=== PATIENT | female | born 1990 | race African-American/Black ===

== ENCOUNTER 2022-06-21 17:47 | Emergency (ER) | payer OTHER ==
[2022-06-21 18:41] LABS: BASOPHILS % (AUTO) 0.3 %; EOSINOPHILS # (AUTO) 0.1 10^3/uL (0.0-0.7); EOSINOPHILS % (AUTO) 1.8 %; HCT - HEMATOCRIT 41.9 % (37.0-47.0); HGB - HEMOGLOBIN 13.3 g/dL (12.0-16.0); LYMPHOCYTES % (AUTO) 32.8 %; MEAN CORPUSCULAR HEMOGLOBIN 26.4 pg (27.0-31.0); MEAN CORPUSCULAR HGB CONC 31.7 g/dL (32.0-36.0); MEAN CORPUSCULAR VOLUME 83.1 fL (81.0-99.0); MEAN PLATELET VOLUME 10.4 fL (7.9-10.8); MONOCYTES # (AUTO) 0.4 10^3/uL (0.0-1.0); MONOCYTES % (AUTO) 7.4 %; NEUTROPHILS # (AUTO) 3.4 10^3/uL (1.5-6.6); NEUTROPHILS % (AUTO) 57.5 %; PLT - PLATELET COUNT 239 10^3/uL (130-450); RED BLOOD COUNT 5.04 10^6/uL (4.20-5.40); RED CELL DISTRIBUTION WIDTH 14.3 % (12.0-15.0)
[2022-06-21 18:53] LABS: ALBUMIN 4.2 g/dL (3.2-5.5); BILIRUBIN,TOTAL 0.2 mg/dL (0.2-1.0); CALCIUM 9.7 mg/dL (8.5-10.3); CREATININE 0.7 mg/dL (0.4-1.0); POTASSIUM 3.9 mmol/L (3.5-5.0); TOTAL PROTEIN 8.3 g/dL (6.7-8.2)
[2022-06-21] MEDS ORDERED: oxyCODONE 5 MG TABLET PO STA ×2 (19:52→22:12)
--- NOTE | 2022-06-21 20:00 | ED Physician Documentation ---
PD HPI ABD PAIN - Stated complaint Stated Complaint: ABD PAIN - Chief complaint Chief Complaint: Abd Pain - History obtained from History obtained from: Patient - History of Present Illness Timing - onset: Today Timing - details: Gradual onset Pain level max: 8 Pain level now: 6 Quality: Aching, Pain Associated symptoms: Diarrhea, Hematochezia. No: Fever, Nausea, Vomiting, Hematemesis, Constipation, Melena, Dysuria, Hematuria, Chest pain - Additional information Additional information: Patient is a 31-year-old female who presents to the emergency department with abdominal pain, suprapubic x2 weeks. The pain has been constant. Described as pressure, cramping and achy. LMP was about 2 weeks ago. Has not had similar symptoms previously. She noted bright red blood in her stool x1. Nothing makes the pain better. Worse with palpation. Does have a history of an appendectomy in the past. She is from [place]. She speaks Bruneian. She does not take any medications at home. Review of Systems Ten Systems: 10 systems reviewed and negative Constitutional: denies: Fever, Chills Cardiac: denies: Chest pain / pressure GI: denies: Vomiting : denies: Dysuria, Frequency, Hesitancy, Now EGA Musculoskeletal: denies: Neck pain, Back pain PD PAST MEDICAL HISTORY - Past Medical History Past Medical History: No - Past Surgical History Past Surgical History: Yes General: Appendectomy - Present Medications Home Medications: Ambulatory Orders Medication Instructions Recorded Confirmed Oxycodone HCl/Acetaminophen 1 - 2 each PO Q6H PRN #14 tablet 06/21/22 [Percocet 5-325 mg Tablet] - Allergies Allergies/Adverse Reactions: Allergies Allergy/AdvReac Type Severity Reaction Status Date / Time No Known Drug Allergies Allergy Verified 06/21/22 18:03 - Living Situation Living Situation: reports: With family Living Arrangement: reports: At home - Social History Does the pt smoke?: No Does the pt have substance abuse?: No PD ED PE NORMAL - Vitals Vital signs reviewed: Yes - General General: Alert and oriented X 3, No acute distress, Well developed/nourished - HEENT HEENT: Moist mucous membranes - Neck Neck: Supple, no meningeal sign - Cardiac Cardiac: RRR, Strong equal pulses - Respiratory Respiratory: No respiratory distress, Clear bilaterally - Abdomen Abdomen: Soft, Non distended, Other (Mild tenderness to palpation suprapubic. No peritoneal signs. Otherwise normal examination) - Back Back: No CVA TTP - Derm Derm: Warm and dry, No rash - Extremities Extremities: No edema - Neuro Neuro: Alert and oriented X 3 - Psych Psych: Normal mood, Normal affect Results - Vitals Vitals: Vital Signs - 24 hr 06/21/22 06/21/22 06/21/22 17:55 20:03 22:21 Temperature 36.5 C 36.6 C Heart Rate 80 80 79 Respiratory 16 16 16 Rate Blood Pressure 129/82 H 122/76 123/76 O2 Saturation 100 98 98 Oxygen O2 Source Room air - Labs Labs: Laboratory Tests 06/21/22 06/21/22 06/21/22 18:34 18:34 20:56 WBC 6.0 RBC 5.04 Hgb 13.3 Hct 41.9 MCV 83.1 MCH 26.4 L MCHC 31.7 L RDW 14.3 Plt Count 239 MPV 10.4 Neut # (Auto) 3.4 Lymph # (Auto) 2.0 [place] # (Auto) 0.4 Eos # (Auto) 0.1 Baso # (Auto) 0.0 Absolute Nucleated RBC 0.00 Nucleated RBC % 0.0 Sodium 140 Potassium 3.9 Chloride 103 Carbon Dioxide 27 Anion Gap 10.0 BUN 14 Creatinine 0.7 Estimated GFR (MDRD) 118 Glucose 76 Calcium 9.7 Total Bilirubin 0.2 AST 20 ALT 13 Alkaline Phosphatase 59 Total Protein 8.3 H Albumin 4.2 Globulin 4.1 Albumin/Globulin Ratio 1.0 Lipase 45 Urine Color Urine Clarity Urine pH Ur Specific [place] Urine Protein Urine Glucose (UA) Urine Ketones Urine Occult Blood Urine Nitrite Urine Bilirubin Urine Urobilinogen Ur Leukocyte Esterase Ur Microscopic Review Urine Culture Comments Urine HCG, Qual NEGATIVE 06/21/22 20:56 WBC RBC Hgb Hct MCV MCH MCHC RDW Plt Count MPV Neut # (Auto) Lymph # (Auto) [place] # (Auto) Eos # (Auto) Baso # (Auto) Absolute Nucleated RBC Nucleated RBC % Sodium Potassium Chloride Carbon Dioxide Anion Gap BUN Creatinine Estimated GFR (MDRD) Glucose Calcium Total Bilirubin AST ALT Alkaline Phosphatase Total Protein Albumin Globulin Albumin/Globulin Ratio Lipase Urine Color YELLOW Urine Clarity CLEAR Urine pH 6.5 Ur Specific [place] 1.025 Urine Protein NEGATIVE Urine Glucose (UA) NEGATIVE Urine Ketones NEGATIVE Urine Occult Blood NEGATIVE Urine Nitrite NEGATIVE Urine Bilirubin NEGATIVE Urine Urobilinogen 0.2 (NORMAL) Ur Leukocyte Esterase NEGATIVE Ur Microscopic Review NOT INDICATED Urine Culture Comments NOT INDICATED Urine HCG, Qual - Rads (name of study) pelvic US Radiology: Final report received, EMP read contemporaneously, See rad report abd/pelvis CT Radiology: Final report received, EMP read contemporaneously, See rad report PD MEDICAL DECISION MAKING - ED course Complexity details: reviewed results, re-evaluated patient, considered differential, d/w patient, d/w family ED course: 31-year-old female presents to the emergency department with abdominal pain. The CT scan was performed without IV contrast as there is a national shortage of IV contrast. The remaining doses of IV contrast are reserved for specific indications and this patient does not meet criteria at this time. The patient's appears to have a left-sided hemorrhagic ovarian cyst. No significant lab abnormalities. Pain well controlled. We will place her on pain medication for home and have her follow-up with her doctor for further care. Patient is well- appearing, nontoxic. Patient counseled regarding signs and symptoms for which I believe and urgent re-evaluation would be necessary. Patient with good understanding of and agreement to plan and is comfortable going home at this time This document was made in part using voice recognition software. While efforts are made to proofread this document, sound alike and grammatical errors may occur. IMPRESSION: 1. No definite acute intra-abdominal abnormality. Specifically, no pericecal inflammatory changes to suggest appendicitis. IMPRESSION: 1. No evidence of ovarian torsion. 2. Thick-walled left ovarian cyst likely represents a physiologic cyst such as a corpus luteal cyst. Departure - Departure Disposition: 01 Home, Self Care Clinical Impression: Hemorrhagic ovarian cyst Condition: Good Instructions: ED Cyst Ovarian Follow-Up: your,doctor in 1 week [Other] Prescriptions: Oxycodone HCl/Acetaminophen [Percocet 5-325 mg Tablet] 1 - 2 each PO Q6H PRN #14 tablet PRN Reason: pain Print Language: Bruneian Comments: You appear to have a hemorrhagic ovarian cyst. This should resolve on its own, but can cause pain for several more days. Your prescription for pain medication was sent to the [facility] pharmacy. Please return if you worsen. The remainder of your testing does not show any acute abnormalities. I am prescribing a short course of narcotic pain medication for you. These are potentially dangerous and addictive medications that should be used carefully. These medications may constipate you. Take an gyki-pno-mbgsytx stool softener (docusate) twice daily with plenty of water while taking these medications. If you go 24 hours without a bowel movement, take noeg-gzg-nvfsyut miralax, per package instructions. Do not drink or drive while taking these medications. If you received narcotic or sedating medications while in the emergency department, do not drive for 24 hours. Store this medication in a safe, secure place and out of reach of children. It is a violation of federal law to give or sell this medication to another person or to use in a manner other than prescribed. The ED will not refill narcotic prescriptions, including prescriptions lost or stolen. To dispose of unwanted medications: 1. [facility] at [address] in [place] has a medication drop box. They accept prescription medications (in pill form) Sunday through Sunday 9:00 a.m. to 5:00 p.m. 2. The [facility] accepts prescription medications (in pill form only) for disposal year round. Call for more information. 3. Contact the [facility] for the next [facility] sponsored prescription drug collection event. , [phone], or [phone]; Discharge Date/Time: 06/21/22 22:21
[2022-06-21 21:01] LABS: BILIRUBIN,URINE NEGATIVE (NEGATIVE); GLUCOSE, URINE (UA) NEGATIVE (NEGATIVE); KETONES,URINE (UA) NEGATIVE (NEGATIVE); LEUKOCYTE ESTERASE, URINE NEGATIVE (NEGATIVE); NITRITE,URINE NEGATIVE (NEGATIVE); OCCULT BLOOD,URINE NEGATIVE (NEGATIVE); PH,URINE 6.5 PH (5.0-7.5); PROTEIN,URINE NEGATIVE (NEGATIVE); UROBILINOGEN,URINE 0.2 (NORMAL) E.U./dL (NORMAL)
[2022-06-21 21:03] LABS: CLARITY,URINE CLEAR (CLEAR); HCG UR QUAL NEGATIVE
--- NOTE | 2022-06-21 21:45 | Ultrasound Report ---
PROCEDURE: Pelvic w/Transvag+Doppler Comp INDICATIONS: pelvic pain x 2 weeks TECHNIQUE: Real-time scanning was performed of the pelvic organs, with image documentation. Additional endovagi nal scanning was necessary due to incomplete visualization of the adnexal and endometrial structures by transabdominal scanning. Doppler interrogation was performed of the ovaries bilaterally. COMPARISON: None. FINDINGS: No pathologic free abdominal or pelvic fluid. Uterus: Uterus is anteverted and measures 10.3 x 5.6 x 6.7 cm. The endometrium measures up to 1.1 cm . There are small nabothian cysts. Ovaries: The right ovary measures 3.5 x 2.4 x 1.8 cm with E to a volume of 8.1 mL. The left ovary me asures 3.8 x 2 x 3 cm with a volume of 12.1 mL. There is patent arterial flow demonstrated in the ova wolfgang. Within the left ovary, there is a thick-walled cyst measuring approximately 2.3 x 1.9 x 2 cm. IMPRESSION: 1. No evidence of ovarian torsion. 2. Thick-walled left ovarian cyst likely represents a physiologic cyst such as a corpus luteal cyst. Reviewed by: Tommy Bey MD on 06/21/2022 9:44 PM PDT Approved by: Tommy Bey MD on 06/21/2022 9:44 PM PDT Station ID: [id number]
--- NOTE | 2022-06-21 21:50 | CT Report ---
PROCEDURE: Abdomen/Pelvis WO INDICATIONS: lower abd pain TECHNIQUE: Noncontrast 5 mm thick sections acquired from the diaphragms to the symphysis. 5 mm coronal and sagi ttal reformats were then performed. For radiation dose reduction, the following was used: automated exposure control, adjustment of mA and/or kV according to patient size. COMPARISON: Concurrent pelvic ultrasound 06/21/2022. FINDINGS: Image quality: Excellent. Lung bases:There is mild dependent atelectasis. Heart: Heart is normal in size. ABDOMEN: Liver:Noncontrast evaluation of the liver demonstrates no discrete hepatic mass. Gallbladder: Within normal limits without calcified gallstones. Biliary ducts: No biliary ductal dilatation. Pancreas: Unremarkable. Spleen: Normal in size. Adrenal Glands: No adrenal nodules. Kidneys and Ureters: No hydronephrosis. Stomach and Bowel: Stomach, small bowel loops, and colon are normal in caliber and wall thickness. T he appendix is not discretely well visualized but there are no pericecal inflammatory changes to sugg est appendicitis. Peritoneum: No abnormal intraperitoneal fluid. No free air. Ventral Wall: No hernia. Abdominal Nodes: No retroperitoneal or mesenteric adenopathy by size criteria. Vessels: Aorta and inferior vena cava are normal in size. PELVIS: Pelvic Organs: Unremarkable. Bladder: Unremarkable. Pelvic Nodes: No enlarged lymph nodes. Miscellaneous: No inguinal hernias are seen. Bones: Visualized osseous structures demonstrate no suspicious focal lesions. IMPRESSION: 1. No definite acute intra-abdominal abnormality. Specifically, no pericecal inflammatory changes to suggest appendicitis. Reviewed by: Tommy Bey MD on 06/21/2022 9:48 PM PDT Approved by: Tommy Bey MD on 06/21/2022 9:48 PM PDT Station ID: [id number]
[2022-06-21 22:22] VITALS: BP 123/76
== END 2022-06-21 22:21 | disposition home or self-care (01) ==
LOC: ED 17:47
DX: N83.202 Unspecified ovarian cyst, left side (principal)
CPT/HCPCS: 36415; 74176; 76830; 76856; 80053; 81003; 81025; 83690; 85025; 93975; 99282; 99284; A9270; 81001; 87086

== ENCOUNTER 2022-08-30 16:01 | Emergency (ER) | payer OTHER ==
[2022-08-30 16:36] LABS: BASOPHILS % (AUTO) 0.2 %; EOSINOPHILS % (AUTO) 0.4 %; HCT - HEMATOCRIT 40.7 % (37.0-47.0); HGB - HEMOGLOBIN 12.6 g/dL (12.0-16.0); LYMPHOCYTES # (AUTO) 1.5 10^3/uL (1.5-3.5); LYMPHOCYTES % (AUTO) 32.8 %; MEAN CORPUSCULAR HEMOGLOBIN 25.7 pg (27.0-31.0); MEAN CORPUSCULAR VOLUME 83.1 fL (81.0-99.0); MEAN PLATELET VOLUME 9.6 fL (7.9-10.8); MONOCYTES # (AUTO) 0.4 10^3/uL (0.0-1.0); MONOCYTES % (AUTO) 7.5 %; NEUTROPHILS # (AUTO) 2.8 10^3/uL (1.5-6.6); NEUTROPHILS % (AUTO) 58.9 %; PLT - PLATELET COUNT 237 10^3/uL (130-450); RED CELL DISTRIBUTION WIDTH 14.1 % (12.0-15.0); WHITE BLOOD COUNT 4.7 x10^3/uL (4.8-10.8)
[2022-08-30 16:49] LABS: ALBUMIN 4.4 g/dL (3.2-5.5); ALBUMIN/GLOBULIN RATIO 1.1 (1.0-2.2); BILIRUBIN,TOTAL 0.9 mg/dL (0.2-1.0); CALCIUM 9.2 mg/dL (8.5-10.3); CREATININE 0.6 mg/dL (0.4-1.0); POTASSIUM 3.4 mmol/L (3.5-5.0); TOTAL PROTEIN 8.4 g/dL (6.7-8.2)
[2022-08-30 17:24] LABS: BILIRUBIN,URINE NEGATIVE (NEGATIVE); GLUCOSE, URINE (UA) NEGATIVE (NEGATIVE); KETONES,URINE (UA) 40 mg/dL (NEGATIVE); LEUKOCYTE ESTERASE, URINE NEGATIVE (NEGATIVE); NITRITE,URINE NEGATIVE (NEGATIVE); OCCULT BLOOD,URINE TRACE-INTA (NEGATIVE); PROTEIN,URINE NEGATIVE (NEGATIVE); UROBILINOGEN,URINE 1 (NORMAL) E.U./dL (NORMAL)
[2022-08-30 17:28] LABS: CLARITY,URINE CLEAR (CLEAR); HCG UR QUAL POSITIVE
--- NOTE | 2022-08-30 17:35 | ED Physician Documentation ---
History of Present Illness - Stated complaint Stated Complaint: ABD PX - Chief complaint Chief Complaint: Abd Pain - Additonal information Additional information: 32-year-old female presents emergency department for evaluation of lower pelvic pain. Symptoms began about 2 weeks ago. She is uncertain if she is but believes she could be. LMP 07/25/2022. She denies fevers. No nausea or vomiting. She has a past surgical history that includes appendectomy only. Was seen in this emergency department for some generalized abdominal pain about 2 months ago with a negative work-up. She reports that the symptoms today are different. She has taken 1 dose of ibuprofen without relief. She reports to this provider that if she is it is not a desired and she would wish for an . History was difficult to obtain it needed to be done with a [employer] hourly sign language interpreter Review of Systems Constitutional: denies: Fever, Chills Nose: reports: Reviewed and negative Throat: reports: Reviewed and negative Cardiac: reports: Reviewed and negative Respiratory: reports: Reviewed and negative GI: reports: Abdominal Pain. denies: Nausea, Vomiting : denies: Dysuria, Frequency Skin: reports: Reviewed and negative Musculoskeletal: reports: Reviewed and negative Neurologic: reports: Reviewed and negative PD PAST MEDICAL HISTORY - Past Surgical History Past Surgical History: Yes General: Appendectomy - Present Medications Home Medications: Ambulatory Orders Medication Instructions Recorded Confirmed Oxycodone HCl/Acetaminophen 1 - 2 each PO Q6H PRN #14 tablet 06/21/22 [Percocet 5-325 mg Tablet] - Allergies Allergies/Adverse Reactions: Allergies Allergy/AdvReac Type Severity Reaction Status Date / Time No Known Drug Allergies Allergy Verified 08/30/22 16:17 - Social History Does the pt smoke?: No Smoking Status: Never smoker Does the pt drink ETOH?: No Does the pt have substance abuse?: No - Immunizations Immunizations are current?: Yes - POLST Patient has POLST: No PD ED PE NORMAL - General General: Alert and oriented X 3, No acute distress, Well developed/nourished - HEENT HEENT: Atraumatic - Neck Neck: Supple, no meningeal sign, No adenopathy - Cardiac Cardiac: RRR, No murmur - Respiratory Respiratory: No respiratory distress, Clear bilaterally - Abdomen Abdomen: Normal bowel sounds, Soft. No: Non tender (Mild nonfocal lower pelvic tenderness.) - Derm Derm: Normal color, Warm and dry - Extremities Extremities: No deformity, No tenderness to palpate, Normal ROM s pain - Neuro Neuro: Alert and oriented X 3, senior policy associate 2-12 intact Eye Opening: Spontaneous Motor: Obeys Commands Verbal: Oriented GCS Score: 15 Results - Vitals Vitals: Vital Signs - 24 hr 08/30/22 08/30/22 16:11 18:57 Temperature 36.7 C Heart Rate 94 69 Respiratory 14 18 Rate Blood Pressure 137/92 H 130/90 H O2 Saturation 100 100 Oxygen O2 Source Room air - Labs Labs: Laboratory Tests 08/30/22 08/30/22 08/30/22 16:31 16:31 16:31 WBC 4.7 L RBC 4.90 Hgb 12.6 Hct 40.7 MCV 83.1 MCH 25.7 L MCHC 31.0 L RDW 14.1 Plt Count 237 MPV 9.6 Neut # (Auto) 2.8 Lymph # (Auto) 1.5 [place] # (Auto) 0.4 Eos # (Auto) 0.0 Baso # (Auto) 0.0 Absolute Nucleated RBC 0.00 Nucleated RBC % 0.0 Sodium 136 Potassium 3.4 L Chloride 103 Carbon Dioxide 23 Anion Gap 10.0 BUN 6 Creatinine 0.6 Estimated GFR (MDRD) 140 Glucose 80 Calcium 9.2 Total Bilirubin 0.9 AST 17 ALT 12 Alkaline Phosphatase 53 Total Protein 8.4 H Albumin 4.4 Globulin 4.0 Albumin/Globulin Ratio 1.1 Lipase 32 HCG, Quant 9048.00 Urine Color Urine Clarity Urine pH Ur Specific [place] Urine Protein Urine Glucose (UA) Urine Ketones Urine Occult Blood Urine Nitrite Urine Bilirubin Urine Urobilinogen Ur Leukocyte Esterase Ur Microscopic Review Urine Culture Comments Urine HCG, Qual Blood Type 08/30/22 08/30/22 08/30/22 17:02 17:02 17:49 WBC RBC Hgb Hct MCV MCH MCHC RDW Plt Count MPV Neut # (Auto) Lymph # (Auto) [place] # (Auto) Eos # (Auto) Baso # (Auto) Absolute Nucleated RBC Nucleated RBC % Sodium Potassium Chloride Carbon Dioxide Anion Gap BUN Creatinine Estimated GFR (MDRD) Glucose Calcium Total Bilirubin AST ALT Alkaline Phosphatase Total Protein Albumin Globulin Albumin/Globulin Ratio Lipase HCG, Quant Urine Color YELLOW Urine Clarity CLEAR Urine pH 6.0 Ur Specific [place] 1.025 Urine Protein NEGATIVE Urine Glucose (UA) NEGATIVE Urine Ketones 40 H Urine Occult Blood TRACE-INTA Urine Nitrite NEGATIVE Urine Bilirubin NEGATIVE Urine Urobilinogen 1 (NORMAL) Ur Leukocyte Esterase NEGATIVE Ur Microscopic Review NOT INDICATED Urine Culture Comments NOT INDICATED Urine HCG, Qual POSITIVE Blood Type O POSITIVE - Rads (name of study) pelvic US Radiology: Other PD MEDICAL DECISION MAKING - ED course Complexity details: reviewed results, re-evaluated patient, considered differential, d/w patient ED course: 32-year-old female presents emergency department for evaluation of 2 weeks of lower pelvic pain. She was uncertain if she you could be . Her LMP was 07/25/2022. This is not a desired and indicates to me that she would like an if we could accommodate. [facility]. However given the lower abdominal pain we did do an ultrasound to rule out an ectopic. Per neurology technologist positive IUP with a gestational sac. Questionable pole and heart rate small subchorionic hemorrhage. Right corpus luteal cyst ultrasound does show an IUP with a gestational sac. Questionable early pole. Her quant is just over 9000 and given last menstrual period it may be too early to see heart rate. There is some associated subchorionic hemorrhage and a small right corpus luteal cyst. Utilizing a [employer] product builder in a private room I did discuss the ultrasound findings with the patient. She indicates to me that she would like to have an and I notified her that the services were not available through the hospital but she could contact [facility] in [place] or [place]. She understood this and will be discharged home in stable condition Departure - Departure Disposition: 01 Home, Self Care Clinical Impression: and not yet delivered in first trimester Condition: Stable Record reviewed to determine appropriate education?: Yes Comments: You came to the emergency department today with about 2 weeks of lower pelvic discomfort and uncertain if you are . Your last menstrual period was July 25. Today the ultrasound does show that you are at likely around 5 to 6 weeks. You have told us that this is not a desired . If you wish to have an [facility] can contact [facility]. [facility] [address] [address]
--- NOTE | 2022-08-30 19:25 | Ultrasound Report ---
PROCEDURE: OB First Trimester w/TV INDICATIONS: low perlvic pain; OUTSIDE/PRIOR DATING DATA: Last menstrual period (LMP): 07/25/2022. LMP-based estimated date of delivery (EVELIO): 05/01/2023. First dating scan (date and location): 08/30/2022. Estimated date of delivery (EVELIO) from first dating scan: 04/27/2023. TECHNIQUE: Real-time scanning was performed of the fetus and maternal pelvic organs, with image documentation. Endovaginal scanning was also performed to better visualize the fetus and maternal ovaries. COMPARISON: None FINDINGS: Small intrauterine consistent with a gestational sac containing a yolk sac and pole m easuring 2 mm in length, corresponding with a 5 week 5 day gestation. Cardiac motion was observed. Subchorionic bleed measures 1 x 0.5 x 1.3 cm Measurement variability in dating: +/- 4 weeks by LMP, +/- 7 days by mean sac diameter (use before 6 weeks gestation if crown-rump length not able to be measured), +/- 5 days by crown-rump length (6-12 weeks gestation). Maternal organs: Ovaries right-sided corpus luteum cyst measures 2.1 x 2.5 cm. No adnexal mass.. IMPRESSION: Single intrauterine corresponds with a 5 week 5 day gestation. No cardiac motion observed. Differential possibilities include normal early and demise. Subchorionic/implantation bleed measures 1.3 cm Reviewed by: Delfin Mart MD on 08/30/2022 6:23 PM JUAN Approved by: Delfin Mart MD on 08/30/2022 6:23 PM JUAN Station ID: [id number]
[2022-08-30 19:45] VITALS: BP 129/79
== END 2022-08-30 19:43 | disposition home or self-care (01) ==
LOC: ED 16:01
DX: O20.8 Other hemorrhage in early pregnancy (principal); Z3A.01 Less than 8 weeks gestation of pregnancy
CPT/HCPCS: 36415; 80053; 81001; 81003; 81025; 83690; 84702; 85025; 86900; 86901; 87086; 99282; 99284

== ENCOUNTER 2022-10-09 10:15 | Outpatient (CLI) | payer OTHER ==
--- NOTE | 2022-10-09 16:47 | Ultrasound Report ---
PROCEDURE: OB First Trimester INDICATIONS: POSITIVE TEST OUTSIDE/PRIOR DATING DATA: Last menstrual period (LMP): 07/25/2022. LMP-based estimated date of delivery (EVELIO): 05/01/2023. First dating scan (date and location): 10/01/2022. Estimated date of delivery (EVEILO) from first dating scan: 04/24/2023. TECHNIQUE: Real-time scanning was performed of the fetus and maternal pelvic organs, with image documentation. COMPARISON: OB ultrasound 08/30/2022 FINDINGS: Embryo: Single live intrauterine is identified with crown-rump length measuring 5.2 cm cor responds to 11 weeks 6 days. Heart rate: 1 55 bpm. Measurement variability in dating: +/- 4 weeks by LMP, +/- 7 days by mean sac diameter (use before 6 weeks gestation if crown-rump length not able to be measured), +/- 5 days by crown-rump length (6-12 weeks gestation). Maternal organs: Ovaries demonstrate a right corpus luteal cyst. IMPRESSION: Single intrauterine bulge on gestational age of 11 weeks 6 days. Recommend follow-up imaging at 20-22 weeks for dates and anatomy. Reviewed by: Evette Hollins MD on 10/09/2022 4:46 PM PST Approved by: Evette Hollins MD on 10/09/2022 4:46 PM PST Station ID: [id number]
== END 2022-10-09 10:16 | disposition home or self-care (01) ==
LOC: DI 10:15
PROVIDERS: ATTEND Obstetrics & Gynecology
DX: Z34.91 Encounter for supervision of normal pregnancy, unspecified, first trimester (principal)

== ENCOUNTER 2022-10-20 16:11 | Outpatient (CLI) | payer OTHER ==
[2022-10-20 16:40] LABS: BASOPHILS % (AUTO) 0.2 %; EOSINOPHILS % (AUTO) 0.5 %; HCT - HEMATOCRIT 40.7 % (37.0-47.0); LYMPHOCYTES # (AUTO) 1.4 10^3/uL (1.5-3.5); LYMPHOCYTES % (AUTO) 22.9 %; MEAN CORPUSCULAR HEMOGLOBIN 26.9 pg (27.0-31.0); MEAN CORPUSCULAR HGB CONC 31.9 g/dL (32.0-36.0); MEAN CORPUSCULAR VOLUME 84.1 fL (81.0-99.0); MEAN PLATELET VOLUME 10.6 fL (7.9-10.8); MONOCYTES # (AUTO) 0.4 10^3/uL (0.0-1.0); MONOCYTES % (AUTO) 6.2 %; NEUTROPHILS # (AUTO) 4.4 10^3/uL (1.5-6.6); PLT - PLATELET COUNT 227 10^3/uL (130-450); RED BLOOD COUNT 4.84 10^6/uL (4.20-5.40); RED CELL DISTRIBUTION WIDTH 14.3 % (12.0-15.0); WHITE BLOOD COUNT 6.3 x10^3/uL (4.8-10.8)
[2022-10-20 16:50] LABS: BILIRUBIN,URINE NEGATIVE (NEGATIVE); GLUCOSE, URINE (UA) NEGATIVE (NEGATIVE); KETONES,URINE (UA) NEGATIVE (NEGATIVE); LEUKOCYTE ESTERASE, URINE NEGATIVE (NEGATIVE); NITRITE,URINE NEGATIVE (NEGATIVE); OCCULT BLOOD,URINE NEGATIVE (NEGATIVE); PH,URINE 6.5 PH (5.0-7.5); PROTEIN,URINE NEGATIVE (NEGATIVE); UROBILINOGEN,URINE 0.2 (NORMAL) E.U./dL (NORMAL)
[2022-10-20 16:52] LABS: CLARITY,URINE CLEAR (CLEAR)
[2022-10-20 16:59] LABS: RBC,URINE None Seen /HPF (0-5); WBC,URINE 0-3 /HPF (0-5)
[2022-10-20 17:00] LABS: BACTERIA,URINE Rare /HPF (None Seen); SQUAMOUS EPITHELIAL CELL,UR MOD Squamous (<= Few)
[2022-10-21 04:51] LABS: CHLAMYDIA TRACHOMATIS DNA NEGATIVE (NEGATIVE); NEISSERIA GONORRHOEAE DNA NEGATIVE (NEGATIVE); TRICHOMONAS VAGINALIS DNA NEGATIVE (NEGATIVE)
[2022-10-21 06:09] LABS: HCV AB 0.1 s/co ratio (0.0-0.9)
[2022-10-21 08:09] LABS: HIV SCREEN 4TH GENERATION Non Reactive (Non Reactive)
[2022-10-21 09:09] LABS: HBsAG SCREEN Negative (Negative)
[2022-10-23 10:08] LABS: VARICELLA-ZOSTER AB IGG <135 index (Immune >165)
== END 2022-10-20 16:12 | disposition home or self-care (01) ==
LOC: LAB 16:11
PROVIDERS: ATTEND Obstetrics & Gynecology
DX: Z34.90 Encounter for supervision of normal pregnancy, unspecified, unspecified trimester (principal)
CPT/HCPCS: 36415; 81001; 85025; 86592; 86762; 86787; 86803; 86850; 86900; 86901; 87086; 87340; 87389; 87491; 87591; 87661

== ENCOUNTER 2022-11-17 14:03 | Outpatient (CLI) | payer OTHER ==
[2022-11-17 15:03] LABS: BASOPHILS % (AUTO) 0.1 %; EOSINOPHILS % (AUTO) 0.5 %; HCT - HEMATOCRIT 40.2 % (37.0-47.0); HGB - HEMOGLOBIN 13.7 g/dL (12.0-16.0); LYMPHOCYTES # (AUTO) 1.5 10^3/uL (1.5-3.5); LYMPHOCYTES % (AUTO) 18.1 %; MEAN CORPUSCULAR HEMOGLOBIN 28.4 pg (27.0-31.0); MEAN CORPUSCULAR HGB CONC 34.1 g/dL (32.0-36.0); MEAN CORPUSCULAR VOLUME 83.2 fL (81.0-99.0); MEAN PLATELET VOLUME 11.1 fL (7.9-10.8); MONOCYTES # (AUTO) 0.5 10^3/uL (0.0-1.0); MONOCYTES % (AUTO) 5.6 %; NEUTROPHILS # (AUTO) 6.1 10^3/uL (1.5-6.6); PLT - PLATELET COUNT 242 10^3/uL (130-450); RED BLOOD COUNT 4.83 10^6/uL (4.20-5.40); RED CELL DISTRIBUTION WIDTH 14.7 % (12.0-15.0); WHITE BLOOD COUNT 8.1 x10^3/uL (4.8-10.8)
[2022-11-18 06:09] LABS: RPR Non Reactive (Non Reactive)
[2022-11-18 07:09] LABS: HIV SCREEN 4TH GENERATION Non Reactive (Non Reactive)
[2022-11-18 08:10] LABS: HBsAG SCREEN Negative (Negative); HCV AB <0.1 s/co ratio (0.0-0.9); VARICELLA-ZOSTER AB IGG <135 index (Immune >165)
== END 2022-11-17 14:04 | disposition home or self-care (01) ==
LOC: LAB 14:03
PROVIDERS: ATTEND Obstetrics & Gynecology
DX: Z34.90 Encounter for supervision of normal pregnancy, unspecified, unspecified trimester (principal)
CPT/HCPCS: 36415; 85025; 86592; 86762; 86787; 86803; 86850; 86900; 86901; 87340; 87389

== ENCOUNTER 2022-12-14 14:11 | Outpatient (CLI) | payer OTHER ==
--- NOTE | 2022-12-14 19:10 | Ultrasound Report ---
PROCEDURE: OB Detailed Eval INDICATIONS: SUPERVISION OF OUTSIDE/PRIOR DATING DATA: Last menstrual period (LMP): 07/25/2022. LMP-based estimated date of delivery (EVELIO): 05/01/2023. First dating scan (date and location): 10/09/2022. Estimated date of delivery (EVELIO) from first dating scan: 04/24/2022. TECHNIQUE: Real-time scanning was performed of the fetus, with image documentation and biometric measurements. COMPARISON: 10/09/2022 FINDINGS: General: A single living intrauterine gestation is present. Presentation: Transverse, variable Placenta: Placental position is anterior The placental tip is 1 cm away from the internal os. Amniotic fluid index: 17.7 cm, within normal limits for gestational age. heart rate: 147 beats per minute. Maternal cervical canal: 6.3 cm long; normal length is 2.5 cm or more. biometrics: Biparietal diameter: 4.96 cm, 21 weeks Head circumference: 18.65 cm, 21 weeks Abdominal circumference: 16.62 cm, 21 weeks and 5 days Femur length: 3.68 cm, 21 weeks and 5 days Estimated gestational age from initial scan: 21 weeks and 2 days Composite gestational age from present scan: 21 weeks and 2 days Estimated weight and percentile: 434.7 g, 61st percentile Measurement variability in biometric dating: +/- 10 days from 12-20 weeks gestation, +/- 2 weeks from 20-30 weeks gestation, +/- 3 weeks at 30 weeks gestation or later. Anatomic survey: Neuro: Ventricles are normal at less than 10 mm. Cisterna magna is normal at 3-11 mm. Cerebellum is normal in size and morphology. Nuchal skin fold: Normal at less than 6 mm between 14 and 20 weeks gestational age. Face: Nose and lips, facial profile are normal. Spine: Not well seen Heart: 4-chambered heart is present, with normal ventricular outflow tracts. Diaphragm: Diaphragm is intact. Stomach: Left-sided stomach is present. Kidneys: No hydronephrosis. Normal is less than 5 mm in 2nd trimester, less than 7 mm in 3rd trimester. Cord: 3 vessel cord has orthotopic insertion. Bladder: Normal in size. Extremities: All 4 extremities are visualized. IMPRESSION: Living intrauterine gestation at 21 weeks and 2 days. Sonographic biometry is concordant, the 61st pe rcentile. The placenta is low-lying within the centimeter of the internal os. Consider future follow up to furt her assess, possibly with transvaginal imaging. Spine is not well seen. Other parts of the anatomic survey are normal. Consider follow-up. Reviewed by: Tom Malin MD on 12/14/2022 7:09 PM PST Approved by: Tom Malin MD on 12/14/2022 7:09 PM PST Station ID: [id number]
== END 2022-12-14 14:12 | disposition home or self-care (01) ==
LOC: DI 14:11
PROVIDERS: ATTEND Obstetrics & Gynecology
DX: O44.42 Low lying placenta NOS or without hemorrhage, second trimester (principal); Z3A.21 21 weeks gestation of pregnancy

== ENCOUNTER 2022-12-15 13:50 | Outpatient (CLI) | payer OTHER ==
[2022-12-18 16:08] LABS: AFP MOM 0.94 (.); DIA MOM 0.75 (.); DIA VALUE 127.72 pg/mL (.); DSR (BY AGE) 1 IN 468 (.); DSR (SECOND TRIMESTER) 1 IN 6643 (.); GEST. AGE ON COLLECTION DATE 20.4 WEEKS (.); HCG MOM 0.96 (.); HCG VALUE 22175 mIU/mL (.); INSULIN DEP DIABETES No (.); MATERNAL AGE AT EDD 32.7 yr (.); MULTIPLE GESTATION No (.); OPEN SPINA BIFIDA RISK 1 IN 10000 (.); RACE Black (.); RESULTS Report (.); TEST RESULTS *Screen Negative* (.); TRISOMY 18 RISK Not increased (.); UE3 MOM 1.18 (.); WEIGHT 182 lbs (.)
== END 2022-12-15 13:51 | disposition home or self-care (01) ==
LOC: LAB 13:50
PROVIDERS: ATTEND Obstetrics & Gynecology
DX: Z34.90 Encounter for supervision of normal pregnancy, unspecified, unspecified trimester (principal); Z36.0 Encounter for antenatal screening for chromosomal anomalies
CPT/HCPCS: 36415; 81511

== ENCOUNTER 2023-01-22 15:46 | Outpatient (CLI) | payer OTHER ==
[2023-01-22 21:32] LABS: HCT - HEMATOCRIT 37.6 % (37.0-47.0); HGB - HEMOGLOBIN 11.6 g/dL (12.0-16.0); MEAN CORPUSCULAR HEMOGLOBIN 27.8 pg (27.0-31.0); MEAN CORPUSCULAR HGB CONC 30.9 g/dL (32.0-36.0); MEAN CORPUSCULAR VOLUME 90.2 fL (81.0-99.0); RED BLOOD COUNT 4.17 10^6/uL (4.20-5.40); RED CELL DISTRIBUTION WIDTH 14.7 % (12.0-15.0); WHITE BLOOD COUNT 6.3 x10^3/uL (4.8-10.8)
== END 2023-01-22 15:47 | disposition home or self-care (01) ==
LOC: LAB.N 15:46
PROVIDERS: ATTEND Obstetrics & Gynecology
DX: Z34.90 Encounter for supervision of normal pregnancy, unspecified, unspecified trimester (principal)
CPT/HCPCS: 36415; 82950; 85027

== ENCOUNTER 2023-02-28 12:43 | Outpatient (CLI) | payer OTHER ==
--- NOTE | 2023-02-28 15:25 | Ultrasound Report ---
PROCEDURE: OB F/U or Repeat INDICATIONS: LOW LYING PLACENTA OUTSIDE/PRIOR DATING DATA: Last menstrual period (LMP): 07/25/2022. LMP-based estimated date of delivery (EVELIO): 05/01/2023. First dating scan (date and location): 10/09/2022. Estimated date of delivery (EVELIO) from first dating scan: 04/24/2023. TECHNIQUE: Real-time scanning was performed of the fetus, with image documentation and biometric measurements. Endovaginal scanning: Not performed COMPARISON: 12/14/2022 FINDINGS: General: A single living intrauterine gestation is present. Presentation: Breech Placenta: Placental position is anterior, and within normal appearance. The inferior tip is 2.[address] from the internal cervical os the following emptying maternal bladder. Amniotic fluid index: 14.8 cm, deepest pocket is 5.5 cm. heart rate: 137 beats per minute. Maternal cervical canal: Closed and 5.7 cm long; normal length is 2.5 cm or more. Other: The spine and covering skin is seen and has a normal appearance. There was visualization of normal kidneys stomach, and heart. IMPRESSION: 1. Single living intrauterine is in breech presentation. 2. Normal position of placenta. No previa. 3. Completion of anatomic survey with visualization of a normal spine and skin covering spine. Reviewed by: Amarilis Epps MD on 02/28/2023 3:23 PM PDT Approved by: Amarilis Epps MD on 02/28/2023 3:23 PM PDT Station ID: [id number]
== END 2023-02-28 12:44 | disposition home or self-care (01) ==
LOC: DI 12:43
PROVIDERS: ATTEND Obstetrics & Gynecology
DX: O32.1XX0 Maternal care for breech presentation, not applicable or unspecified (principal); Z3A.00 Weeks of gestation of pregnancy not specified

== ENCOUNTER 2023-04-03 16:10 | Outpatient (CLI) | payer OTHER ==
--- NOTE | 2023-04-03 17:51 | Ultrasound Report ---
PROCEDURE: OB F/U or Repeat INDICATIONS: UTERINE SIZE DATE DISCREPENCY OUTSIDE/PRIOR DATING DATA: Last menstrual period (LMP): 07/25/2022. LMP-based estimated date of delivery (EVELIO): 05/01/2023. First dating scan (date and location): 10/09/2022. Estimated date of delivery (EVELIO) from first dating scan: 04/24/2023. The below data below was generated using the working EVELIO of 04/24/2023 TECHNIQUE: Real-time scanning was performed of the fetus, with image documentation and biometric measurements. Endovaginal scanning: Not indicated COMPARISON: 02/28/2023, 12/14/2022 FINDINGS: General: A single living intrauterine gestation is present. Presentation: Vertex Placenta: Placental position is anterior, without previa. Amniotic fluid index: 23 cm, normal for gestational age. heart rate: 143 beats per minute. Maternal cervical canal: 4.3 cm long; normal length is 2.5 cm or more. biometrics: Biparietal diameter: 9.47 cm, 38 weeks, 4 days. Head circumference: 34.28 cm, 39 weeks, 4 days. Abdominal circumference: 34.37 cm, 38 weeks, 2 days. Femur length: 7.18 cm, 36 weeks, 5 days. Estimated gestational age from initial scan: 37 weeks, 0 day Composite gestational age from present scan: 38 weeks, 2 days Estimated weight and percentile: 3400.9 g, 83.4%. Measurement variability in biometric dating: +/- 10 days from 12-20 weeks gestation, +/- 2 weeks from 20-30 weeks gestation, +/- 3 weeks at 30 weeks gestation or more. Other: Umbilical artery S/D ratio measures 1.97, 2.00 and 2.33. IMPRESSION: 1. Single live intrauterine gestation with fetus in vertex presentation. heart rate is 143 bpm. 2. Normal amount of amniotic fluid at 23 cm which is at 92.4%. Estimated weight is at 83.4%. 3. Normal umbilical artery S/D ratio. 4. Cervix to placental edge distance is 7.11 cm. No evidence of placenta previa. Reviewed by: Kermit Adams MD on 04/03/2023 5:50 PM PDT Approved by: Kermit Adams MD on 04/03/2023 5:50 PM PDT Station ID: [id number]
== END 2023-04-03 16:11 | disposition home or self-care (01) ==
LOC: DI 16:10
PROVIDERS: ATTEND Obstetrics & Gynecology
DX: O26.843 Uterine size-date discrepancy, third trimester (principal); Z3A.38 38 weeks gestation of pregnancy

== ENCOUNTER 2023-04-13 08:00 | Outpatient (CLI) | payer OTHER | END 2023-04-13 23:58 | disposition home or self-care (01) | LOC: LAB.WC 08:00 | PROVIDERS: ATTEND Obstetrics & Gynecology | DX: Z36.85 Encounter for antenatal screening for Streptococcus B (principal) | CPT/HCPCS: 87797 ==

== ENCOUNTER 2023-04-29 23:48 | Inpatient (IN) | payer OTHER ==
[2023-04-30] MEDS ORDERED: hydrALAZINE INJ 20 MG/ML VIAL IVP PRN ×2 (03:04)
[2023-04-30] MEDS ORDERED: SODIUM CHLORIDE FLUSH 0.9% 10 ML SYRINGE IVP PRN (03:04)
[2023-04-30] MEDS ORDERED: LABETALOL 20 MG/4 ML SYRINGE IVP PRN ×3 (03:04)
[2023-04-30] MEDS ORDERED: TRANEXAMIC ACID IN NACL 1,000 MG/100 ML BAG IV PRN (03:04)
[2023-04-30] MEDS ORDERED: AMPICILLIN 2 GM in SODIUM CHLORIDE 0.9% MINIBAG 100 ML IV ONE (03:04)
[2023-04-30] MEDS ORDERED: fentaNYL 100 MCG/2 ML VIAL IVP PRN (03:04)
[2023-04-30] MEDS ORDERED: OXYTOCIN 10 UNIT/ML VIAL IM PRN (03:04)
[2023-04-30] MEDS ORDERED: NIFEdipine 10 MG CAPSULE PO PRN (03:04)
[2023-04-30] MEDS ORDERED: METHYLERGONOVINE 0.2 MG/ML VIAL IM PRN (03:04)
[2023-04-30] MEDS ORDERED: miSOPROStoL 200 MCG TABLET BC PRN (03:04)
[2023-04-30] MEDS ORDERED: OXYTOCIN/SODIUM CHLORIDE 500 ML IV PRN (03:04)
[2023-04-30] MEDS ORDERED: lidocaine 1% 20 ML MDV ID PRN (03:04)
[2023-04-30] MEDS ORDERED: CARBOPROST TROMETHAMINE 250 MCG/ML AMP IM PRN (03:04)
[2023-04-30] MEDS ORDERED: TERBUTALINE 1 MG/ML VIAL SUBQ PRN (03:04)
[2023-04-30] MEDS ORDERED: miSOPROStoL 200 MCG TABLET PR PRN (03:04)
--- NOTE | 2023-04-30 03:23 | HISTORY & PHYSICAL EXAMINATION ---
Admit History - Visit Reason Visit Reason: Contractions - : 3 Parity: 2 Smoking Status: Never smoker - Mother's Labs Mother's Blood Type: positive: O Mother's RH: positive: Positive GBS: positive: Group B Strep Positive Rubella Status: positive: Non-immune, Immune - Other Maternal History Other Maternal History: HPI: 32-year-old -0-0-2 at 39 weeks 6 days gestation admitted for contractions. They picked up late yesterday evening and became more intense.. She has good movement. Denies loss of fluid. No CLIFFORD/BV or RUQP. No vaginal bleeding. Denies nausea and vomiting. Denies urinary urgency or dysuria. All other symptoms reviewed and were negative except per HPI. Course LMP: 07/25/2022 EVELIO by LMP:05/01/2023 Initial U/S:10/09/2022 @ 11w6d c/w dating FINAL EVELIO:05/01/2023 Pre- Weight: 180 BMI:29.61 Problems: Varicella NON-immune GBS POS O pos/Rubella immune VZV: NON immune Genetic testing: Negative Quad FAS: FAS yesterday and she is having another boy. Placenta anterior and low lying adjacent to internal os. Spine not well visualized. Otherwise normal. We discussed pelvic rest until repeat US confirms placental location. Follow up 28w Placenta 2.7cm from internal os. Spine normal. Glucola 126 Influenza: declines TDAP 02/09/23 COVID: x2 GBS + HSV: Breast pump Rx 02/09/23 MOD: pp contraception: pap:never, do Initial GC/CT:Negative PMH Denies pertinent history PSH Appendectomy age 10 OB History 1. 12/09/2014, , male 2. 03/28/2018, , male SH Denies tobacco, alcohol, drugs Family History Denies significant family history Allergies No known drug allergies Medications vitamins Ferrous sulfate Physical exam: General: Alert, oriented, no acute distress Head: Normal cephalic atraumatic Eyes: PERRLA, extraocular motions intact. Respiratory: Normal rate of respiration. No accessory muscle use, normal respiratory effort. Cardiovascular: Regular rate and rhythm Abdomen: Gravid, nontender, nondistended Extremities: Normal range of motion Neuro: Oriented x3. Normal movements Psych: Appropriate mood and affect. Normal judgment and insight SVE: 4/50/-3 FHT: 145 beats per baseline, moderate variability, accelerations present, rare, questionable late deceleration. Category 1 tracing. Reactive NST [place]: Irregular, approximately or 8 to 10 minutes Plan 32-year-old -0-0-2 at 39 weeks 6 days gestation admitted for term labor 1. Term labor -Patient progressed from 2 to 4 cm between checks. -Admit to L&D, admit labs, epidural at patient's request, nitrous oxide as needed. 2. 39 weeks gestation 3. Intermittent category 2 tracing -Rare late deceleration although confused by baseline change. Overall good variability with accelerations. Expectant management appropriate this time. We did discuss possible need for future augmentation, but will allow patient to labor on her own. 4. GBS positive -Ampicillin for GBS sepsis prophylaxis 5. Varicella nonimmune -Vaccination Meds/Allgy - Home Medications Home Medications: Ambulatory Orders Medication Instructions Recorded Confirmed Oxycodone HCl/Acetaminophen 1 - 2 each PO Q6H PRN #14 tablet 06/21/22 [Percocet 5-325 mg Tablet] - Allergies Allergies/Adverse Reactions: Allergies Allergy/AdvReac Type Severity Reaction Status Date / Time No Known Drug Allergies Allergy Verified 08/30/22 16:17 Physical - Abdominal Exam Vital Signs: Temp Pulse Resp BP Pulse Ox O2 Flow Rate 98.4 F 87 20 107/55 L 100 04/30/23 02:50 04/30/23 02:50 04/30/23 02:50 04/30/23 02:50 04/30/23 02:50 Plan for Labor - Plan For Labor I expect patient to be DC'd or transferred within 96 hours.: Yes
[2023-04-30] MEDS: LACTATED RINGERS 1,000 ML IV SCH ×2 (04:13→20:11)
[2023-04-30] MEDS ORDERED: ROPIVACAINE 0.2% 200 MG/100 ML BAG EP ONE (04:37)
[2023-04-30] MEDS ORDERED: NALBUPHINE 10 MG/ML AMP IVP PRN (06:04)
[2023-04-30] MEDS ORDERED: ROPIVACAINE 0.2% 200 MG/100 ML BAG EP PRN (06:04)
[2023-04-30] MEDS ORDERED: NALOXONE 0.4 MG/ML VIAL IVP PRN (06:04)
[2023-04-30] MEDS ORDERED: diphenhydrAMINE INJ 50 MG/ML VIAL IVP PRN (06:04)
[2023-04-30] MEDS ORDERED: ePHEDrine 50 MG/ML VIAL IVP PRN (06:04)
[2023-04-30] MEDS ORDERED: ONDANSETRON 4 MG/2 ML VIAL IVP PRN (06:04)
[2023-04-30] MEDS ORDERED: METOCLOPRAMIDE 10 MG/2 ML VIAL IVP PRN (06:04)
--- NOTE | 2023-04-30 06:04 | ANESTHESIA ---
Pre-Anesthesia VS, & Labs - Diagnosis active labor pain - Procedure labor epidural Vital Signs: Temp Pulse Resp BP Pulse Ox O2 Flow Rate 36.9 C 87 20 107/55 L 100 04/30/23 02:50 04/30/23 02:50 04/30/23 02:50 04/30/23 02:50 04/30/23 02:50 Height: 5 ft 5.75 in Weight (kg): 95 kg Body Mass Index: 34.0 BMI Classification: Obese - NPO Other - Is Patient ?: Yes Home Medications and Allergies Active Medications Carboprost Tromethamine (Carboprost Tromethamine 250 Mcg/Ml Amp) 250 mcg IM .ONCE PRN PRN Reason: Hemorrhage Fentanyl (Fentanyl 100 Mcg/2 Ml Vial) 50 mcg IVP Q1H PRN PRN Reason: Severe Pain (score 7-10) Hydralazine HCl (Hydralazine Inj 20 Mg/Ml Vial) 5 - 10 mg IVP Q20M PRN; Protocol PRN Reason: SBP> or= 160 OR DBP> or= 110 Hydralazine HCl (Hydralazine Inj 20 Mg/Ml Vial) 10 mg IVP .ONCE PRN; Protocol PRN Reason: SBP> or= 160 OR DBP> or= 110 Oxytocin/Sodium Chloride (Pitocin/Sodium Chloride) 500 mls @ 999 mls/hr IV PRN PRN; Protocol PRN Reason: POST- HEMORR PREVENTION Tranexamic Acid (Tranexamic 1,000 Mg/100ml-Nacl) 1,000 mg in 100 mls @ 600 mls/hr IV Q30M PRN PRN Reason: EBL >1200mL and within 3hr Ampicillin Sodium 1 gm/ Sodium (Chloride) 100 mls @ 200 mls/hr IV Q4H PAULA Lactated Ringer's (Lr) 1,000 mls @ 125 mls/hr IV .Q8H [facility] Last Admin: 04/30/23 04:13 Dose: 125 mls/hr Labetalol HCl (Labetalol 20 Mg/4 Ml Syringe) 20 - 80 mg IVP Q10M PRN; Protocol PRN Reason: SBP> or= 160 OR DBP> or= 110 Labetalol HCl (Labetalol 20 Mg/4 Ml Syringe) 20 mg IVP .ONCE PRN; Protocol PRN Reason: SBP> or= 160 OR DBP> or= 110 Labetalol HCl (Labetalol 20 Mg/4 Ml Syringe) 20 - 40 mg IVP Q10M PRN; Protocol PRN Reason: SBP> or= 160 OR DBP> or= 110 Lidocaine HCl (Lidocaine 1% 20 Ml Mdv) 20 ml ID .ONCE PRN PRN Reason: PERINEAL REPAIR Stop: 05/03/23 03:07 Methylergonovine Maleate (Methylergonovine 0.2 Mg/Ml Vial) 0.2 mg IM .ONCE PRN PRN Reason: Hemorrhage Misoprostol (Misoprostol 200 Mcg Tablet) 600 mcg BC .ONCE PRN PRN Reason: Hemorrhage Misoprostol (Misoprostol 200 Mcg Tablet) 800 mcg VT .ONCE PRN PRN Reason: Hemorrhage Nifedipine (Nifedipine 10 Mg Capsule) 10 - 20 mg PO Q20M PRN; Protocol PRN Reason: SBP> or= 160 OR DBP> or= 110 Oxytocin (Oxytocin 10 Unit/Ml Vial) 10 unit IM .ONCE PRN PRN Reason: Step One if no IV access. Sodium Chloride (Sodium Chloride Flush 0.9% 10 Ml Syringe) 10 ml IVP PRN PRN PRN Reason: NEEDED PER PROVIDER ORDERS Sodium Chloride (Sodium Chloride Flush 0.9% 10 Ml Syringe) 10 ml IVP Q8H PAULA Terbutaline Sulfate (Terbutaline 1 Mg/Ml Vial) 0.25 mg SUBQ .ONCE PRN PRN Reason: Tachystole Allergies/Adverse Reactions: Allergies Allergy/AdvReac Type Severity Reaction Status Date / Time No Known Drug Allergies Allergy Verified 08/30/22 16:17 Anes History & Medical History - Anesthetic History Anesthesia Complications: reports: No previous complications Family history of Anesthesia Complications: Denies Family history of Malignant Hyperthermia: Denies - Medical History Cardiovascular: reports: None Pulmonary: reports: None Gastrointestinal: reports: None Smoking Status: Never smoker - Surgical History General: reports: Appendectomy - Obstetrical History : 3 Parity: 2 Exam General: Alert, Oriented x3, Cooperative Dental: WNL Mouth Openin Fingerbreadth Neck Mobility: Normal Mallampati classification: I Thyromental Distance: 4-6 cm Respiratory: Lungs clear Cardiovascular: Regular rate Plan Anesthesia Type: Epidural Consent for Procedure(s) Verified and Reviewed: Yes Code Status: Attempt Resuscitation ASA classification: 2-Mild systemic disease Is this case an emergency?: No
[2023-04-30 06:08] LABS: BASOPHILS % (AUTO) 0.3 %; EOSINOPHILS % (AUTO) 0.4 %; HCT - HEMATOCRIT 41.9 % (37.0-47.0); HGB - HEMOGLOBIN 12.9 g/dL (12.0-16.0); LYMPHOCYTES # (AUTO) 1.4 10^3/uL (1.5-3.5); MEAN CORPUSCULAR HEMOGLOBIN 27.8 pg (27.0-31.0); MEAN CORPUSCULAR HGB CONC 30.8 g/dL (32.0-36.0); MEAN CORPUSCULAR VOLUME 90.3 fL (81.0-99.0); MEAN PLATELET VOLUME 10.4 fL (7.9-10.8); MONOCYTES # (AUTO) 0.6 10^3/uL (0.0-1.0); MONOCYTES % (AUTO) 8.2 %; NEUTROPHILS # (AUTO) 5.3 10^3/uL (1.5-6.6); NEUTROPHILS % (AUTO) 71.4 %; PLT - PLATELET COUNT 148 10^3/uL (130-450); RED BLOOD COUNT 4.64 10^6/uL (4.20-5.40); RED CELL DISTRIBUTION WIDTH 15.7 % (12.0-15.0); WHITE BLOOD COUNT 7.4 x10^3/uL (4.8-10.8)
--- NOTE | 2023-04-30 06:21 | PROVIDER PROGRESS NOTE ---
Labor Progress Note - Uterine Monitoring Uterine Monitoring Mode: positive: External toco Contraction Frequency (min/apart): 2-6 Contraction Intensity: positive: Strong - Monitoring Monitor Mode: positive: External ultrasound Heart Rate Baseline: 140 Heart Rate Variability: positive: Moderate (6-25 bmp) Accelerations: positive: Present, 15x15 Decelerations: positive: Late, Intermittent (<50% x20 min) Strip Review: positive: Category I, Category II - Vaginal Exam Dilation (in cm): 6 Effacement (%): 80 Station: -2, Ballotable - Labor Progress Note Labor Progress Note/Additional Text: Patient continues to make changes on her own. Very slight, possible late decelerations that are rare. Patient received an epidural for pain control. Head is still ballotable with a bulging bag. May require needling of membranes if head does not become better engaged.
[2023-04-30] MEDS: AMPICILLIN 1 GM in SODIUM CHLORIDE 0.9% MINIBAG 100 ML IV SCH ×3 (08:45→20:15)
--- NOTE | 2023-04-30 09:28 | PROVIDER PROGRESS NOTE ---
Labor Progress Note - Uterine Monitoring Uterine Monitoring Mode: positive: External toco Contraction Intensity: positive: Moderate to strong, Strong - Monitoring Heart Rate Variability: positive: Moderate (6-25 bmp) Accelerations: positive: Absent Decelerations: positive: None Strip Review: positive: Category I - Vaginal Exam Dilation (in cm): 8 Effacement (%): 70 Station: 0 (thick anterior cervical lip EFW 9.5 lbs)
--- NOTE | 2023-04-30 10:16 | PROVIDER PROGRESS NOTE ---
Labor Progress Note - Uterine Monitoring Uterine Monitoring Mode: positive: External toco Contraction Intensity: positive: Strong - Monitoring Heart Rate Variability: positive: Moderate (6-25 bmp) Accelerations: positive: Absent Decelerations: positive: Variable, Intermittent (<50% x20 min) - Vaginal Exam Dilation (in cm): 8 Effacement (%): 70 Station: 0 (anterior cervix is swollen, patient is pushing with contractions- counseled about not pushing until full cervical dilation. Called anesthesia to re-evaluate epidural.)
[2023-04-30] MEDS ORDERED: fentaNYL 100 MCG/2 ML VIAL ONE (10:21)
--- NOTE | 2023-04-30 11:26 | PROVIDER PROGRESS NOTE ---
Labor Progress Note - Uterine Monitoring Uterine Monitoring Mode: positive: External toco Contraction Intensity: positive: Strong - Monitoring Heart Rate Variability: positive: Moderate (6-25 bmp) Accelerations: positive: Absent Decelerations: positive: None - Vaginal Exam Dilation (in cm): thick anterior lip Effacement (%): 80 - Labor Progress Note Labor Progress Note/Additional Text: Patient unable to tolerate replacement of epidural significant descent of station
--- NOTE | 2023-04-30 11:57 | DELIVERY NOTE ---
Delivery Note - Labor Labor: positive: Spontaneous, Augmented by ARM - Infant Delivery Method Infant Delivery Method: positive: Spontaneous vaginal delivery - Presentation Presentation: positive: Vertex - Nuchal Cord Nuchal Cord: positive: None - Anesthetic Anesthetic Type: - Amniotic Fluid Description Amniotic Fluid Description: positive: Clear - Episiotomy Type Episiotomy Type: positive: None - Laceration Laceration: positive: None - [place]: positive: Placed in direct skin contact with mother [place] sex: positive: Male - Cord Cord: positive: 2 vessels - Placenta Placenta: positive: Intact, Spontaneous - Estimated Blood Loss Estimated Blood Loss (in cc): 200 - Post Delivery Events Post Delivery Events: positive: No post delivery events
[2023-04-30] MEDS ORDERED: SIMETHICONE CHEW 80 MG TABLET PO PRN (11:59)
[2023-04-30] MEDS ORDERED: DOCUSATE SODIUM 100 MG CAPSULE PO PRN (11:59)
--- NOTE | 2023-04-30 11:59 | PROCEDURE REPORT ---
Hospitalist Procedure Note - Procedure Note Procedure Note: Normal Spontaneous vaginal delivery Stage I: Patient is a presented in labor. Patient received epidural for pain management. AROM with clear fluid. Stage II: N[place] infant was atraumatcally delivered from YONAS position. There was no nuchal cord. The anterior shoulder was delivered without difficulty followed by the posterior shoulder and body. was vigorous at delivery. was bulb suctioned and cord was doubly clamped and cut. Infant was placed on mom. Weight and APGARS pending Stage III: Gentle cord traction and crede maneuver were used. Placenta delivered spontaneously. Placenta was noted to not be intact, 3vc. Course: Uterine tone was firm with massage after delivery of the placenta. Oxytocin was administered IV. No lacerations. EBL: 200 mL
[2023-04-30] MEDS ORDERED: LACTATED RINGERS 1,000 ML IV SCH (12:00)
[2023-04-30] MEDS: ACETAMINOPHEN 500 MG TABLET PO SCH ×2 (16:07→20:12)
[2023-04-30] MEDS: IBUPROFEN 600 MG TABLET PO SCH ×2 (16:07→20:13)
[2023-04-30] MEDS: SODIUM CHLORIDE FLUSH 0.9% 10 ML SYRINGE IVP SCH ×2 (20:05→20:09)
[2023-05-01] MEDS: ACETAMINOPHEN 500 MG TABLET PO SCH ×2 (00:02→10:56)
[2023-05-01] MEDS: IBUPROFEN 600 MG TABLET PO SCH ×2 (00:04→10:56)
--- NOTE | 2023-05-01 09:41 | PROVIDER PROGRESS NOTE ---
Subjective - Prog Note Date Prog Note Date: 05/01/23 Prog Note Time: 09:40 - Subjective Pt reports feeling: Improved (Patient is PPD#1 s/p . Pt doing well. Ambulating, tolerating regular diet. Lochia < menses. Denies chest pain and shortness of breath.) Objective - Vital Signs/Intake & Output Reviewed Vital Signs: Yes Vital Signs: Vital Signs x48h Temp Pulse Resp BP Pulse Ox 05/01/23 04:56 98.1 F 86 18 110/63 99 Intake & Output: Intake & Output 04/28/23 04/29/23 04/30/23 05/01/23 23:59 23:59 23:59 23:59 Intake Total 2377 Output Total 890 Balance 1487 - Objective General Appearance: positive: No acute distress Respiratory: positive: Breath sounds nml Cardiovascular: positive: Regular rate & rhythm Abdomen: positive: Non-tender (firm fundus below umbilicus) Extremities: positive: Non-tender, No pedal edema Neurologic/Psychiatric: positive: Oriented x3 - Lab Results Fish Bones: 04/30/23 06:01 Assessment/Plan - Problem List (1) Vaginal delivery Impression: uncomplicated course. Discharge to home today.
--- NOTE | 2023-05-01 09:45 | DISCHARGE SUMMARY ---
Discharge Summary Admit Date: 04/30/23 Discharge Date: 05/01/23 Discharging Provider: Tyler Primary Care Provider: Rory Code Status: Attempt Resuscitation Condition at Discharge: Good Discharge Disposition: 01 Home, Self Care - HPI History of Present Illness: Patient is a who presented at term in labor. Epidural for pain management. AROM with clear fluid. Uncomplicated vaginal delivery with uncomplicated course. - ALLERGIES Allergies/Adverse Reactions: Allergies Allergy/AdvReac Type Severity Reaction Status Date / Time No Known Drug Allergies Allergy Verified 08/30/22 16:17 - MEDICATIONS Home Medications: Ambulatory Orders Medication Instructions Recorded Confirmed Oxycodone HCl/Acetaminophen 1 - 2 each PO Q6H PRN #14 tablet 06/21/22 [Percocet 5-325 mg Tablet] - PHYSICAL EXAM AT DISCHARGE General Appearance: positive: No acute distress Respiratory: positive: Chest non-tender Cardiovascular: positive: Regular rate & rhythm Abdomen: positive: Non-tender (firm fundus below the umbilicus) Extremities: positive: Non-tender, No pedal edema Neurologic/Psychiatric: positive: Oriented x3 - LABS Result Diagrams: 04/30/23 06:01
[2023-05-01 10:01] VITALS: BP 113/61
--- NOTE | 2023-05-01 15:16 | Labor Flowsheet ---
Labor Flowsheet Datetime Report Generated by CPN: 05/01/2023 15:16 Datetime: 05/01/2023 09:47 VITAL SIGNS NBP Sys/Katey/Mean (mmHg): 113 : 60 : 71 Pulse: 94 Datetime: 05/01/2023 06:45 UTERINE ACTIVITY Monitor Mode: External Frequency (min): 2-5 Quality: Moderate Duration (sec): 60-120 Pattern: Normal: <= 5 Contractions in 10 Minutes Resting Tone (Palpate): Relaxed ASSESSMENT A Monitor Mode: External US FHR Baseline Rate : 140 FHR Baseline Changes: No Baseline Change Variability: Moderate 6-25 bpm Accelerations: 15X15 Category: Category I Datetime: 04/30/2023 15:02 Membranes Ruptured Date/Time: 04/30/2023 08:40 Amniotic Fluid Odor: Normal Datetime: 04/30/2023 13:30 Epidural Procedure Other: Cath Removed Datetime: 04/30/2023 12:16 Communication Comments: skin to skin Datetime: 04/30/2023 11:40 VAGINAL EXAM Dilatation (cm): 10.0 Effacement (%): 100 Station: 3 Vaginal Exam Comments: Datetime: 04/30/2023 11:32 Monitor Interventions for FHR: Ultrasound Adjusted Comments: MHR vs. FHR Datetime: 04/30/2023 11:31 LaborFlag: Labor Datetime: 04/30/2023 11:23 Exam by: Dr. Baltes Datetime: 04/30/2023 10:58 Patient Care Comments: reposition hands and knees Datetime: 04/30/2023 09:15 SpO2 (%): 100 Datetime: 04/30/2023 08:40 Membranes Rupture Method: Artificial Amniotic Fluid Color: Clear Amniotic Fluid Amount: Moderate Datetime: 04/30/2023 07:56 Vaginal Bleeding: None Cervix, Consistency: Soft Cervix, Position: Midposition Datetime: 04/30/2023 07:10 COMMUNICATION Communication: RN Reviewed Strip Notification Reason: Other Datetime: 04/30/2023 06:31 Temperature (C): 36.9 Temperature Route: Oral PAIN Pain Scale: R=0; L=7-8/10 LLQ. Remains in LLP; awaiting PACKAGING MACHINE OPERATOR to evaluate. Datetime: 04/30/2023 06:15 Decelerations: Variable Patient Position/Activity: HOB Lowered; Left Lateral Comfort Measures: Breathing/Relaxation; Coaching; Family Support Datetime: 04/30/2023 06:11 Provider Reviewed Strip: Yes Strip Reviewed by: Dr Mick Datetime: 04/30/2023 06:00 Respirations: 16 Pain Coping: Resting with eyes closed between UCs; one sided block, R>L pain relief Datetime: 04/30/2023 05:50 Anesthesia Level Check: L = S1, R = T7 Datetime: 04/30/2023 05:38 Epidural Procedure: Loading Dose Datetime: 04/30/2023 05:22 Epidural Positioning: Sitting Datetime: 04/30/2023 05:20 TEACHING Instructional Method: Demo; Verbal; Patient Instructed; Family/Support Person Instructed; Via Inter preter; Verbalized Understanding Unit Routine: Safety/Fall Risk Prevention; Routine Time Outs; Medications Pain Management: Epidural; Pain Scale/Goals; Comfort Measures Datetime: 04/30/2023 05:17 PROCEDURE TIME OUT Procedure Type: 0517 Procedure Verify: Correct Patient Identity; Correct Side and Site are Marked; Accurate Procedure Co nsent Form; Agreement on Procedure to be Done; Correct Patient Position; Safety Precautions Based on Patient History or Medication Use ANESTHESIA Anesthesia Plans: Epidural Datetime: 04/30/2023 05:15 Actions for Decelerations: repositioned to L tilt after SVE Datetime: 04/30/2023 05:00 Anesthesia Comments: PACKAGING MACHINE OPERATOR here to do epidural for pain mgmt. Datetime: 04/30/2023 04:50 Pain Presence: Intermittent Pain Type: Cramping; Sharp; Contraction; Pressure Pain Location: Abdomen; Right Groin; Left Groin Pain Goal: 5 Pain Relief Measures: Comfort Measures Datetime: 04/30/2023 04:18 MEDICATIONS Antibiotics: Ampicillin IV 2 Gm Datetime: 04/30/2023 04:14 PATIENT CARE IV/Blood Work: IV Started; New IV Bag Hung Datetime: 04/30/2023 03:00 Stage of : Labor Datetime: 04/30/2023 02:30 MATERNAL ASSESSMENT Level of Consciousness: Alert DTR's/Clonus: DTRs 1+; No Clonus Headache: Denies Breath Sounds, Left: Clear and Equal Breath Sounds, Right: Clear and Equal Nausea/Vomiting: Denies RUQ Epigastric Pain: Denies Datetime: 04/30/2023 01:44 I/O Interventions: Up to BR Datetime: 04/30/2023 01:15 Vital Sign Comments: 0 Datetime: 04/30/2023 00:53 Provider Notified (Name): Dr Mick Datetime: 04/30/2023 00:50 Oxygen Method: Room Air Datetime: 04/30/2023 00:10 Pain Assessment Comments: "vagina" pain Membrane Status: Intact
== END 2023-05-01 13:42 | disposition home or self-care (01) | DRG 807 ==
LOC: WFO 23:48 → FBP 23:48 → WFO 04-30 03:00 → EDBD 04-30 03:07 → FBP 04-30 03:07
PROVIDERS: ADMIT Obstetrics & Gynecology; ATTEND Obstetrics & Gynecology Obstetrics
PROC: 10E0XZZ Delivery of Products of Conception, External Approach (ICD-10-PCS; principal; 2023-04-30)
PROC: 10907ZC Drainage of Amniotic Fluid, Therapeutic from Products of Conception, Via Natural or Artificial Opening (ICD-10-PCS; 2023-04-30)
DX: O99.824 Streptococcus B carrier state complicating childbirth (principal); Z37.0 Single live birth; O76 Abnormality in fetal heart rate and rhythm complicating labor and delivery; Z3A.39 39 weeks gestation of pregnancy
CPT/HCPCS: 36415; 85025; 86850; 86900; 86901; 99215; A9270; J7120

== ENCOUNTER 2023-08-21 13:32 | Emergency (ER) | payer OTHER ==
[2023-08-21] MEDS ORDERED: ACETAMINOPHEN 325 MG TABLET PO STA (14:38)
--- NOTE | 2023-08-21 15:23 | ED Physician Documentation ---
PD HPI CHEST PAIN - Stated complaint Stated Complaint: N/V,CLIFFORD,STOMACH/CHEST PX - Chief complaint Chief Complaint: Cardiac - History obtained from History obtained from: Patient - Additional information Additional information: Patient is a 33-year-old female with no significant prior medical history presenting for evaluation of chest pain that she has been feeling for the past 1 week. Patient states that the pain is constant. It is worse when she is breast-feeding. She also reports having a headache and a cough and feels generally tired. Patient states that she has been waking up every 2 hours to feed her 3-month-old baby. She states that he is also sick with congestion in the past week. Her primary concern today is having trouble sleeping and wanting to get medication to help her sleep. Denies shortness of air, abdominal symptoms. Review of Systems Constitutional: denies: Fever Cardiac: reports: Chest pain / pressure Respiratory: reports: Cough. denies: Dyspnea GI: denies: Abdominal Pain, Vomiting Neurologic: reports: Headache PD PAST MEDICAL HISTORY - Past Medical History Cardiovascular: None Respiratory: None GI: None - Past Surgical History Past Surgical History: Yes General: Appendectomy - Present Medications Home Medications: Ambulatory Orders Medication Instructions Recorded Confirmed Oxycodone HCl/Acetaminophen 1 - 2 each PO Q6H PRN #14 tablet 06/21/22 [Percocet 5-325 mg Tablet] - Allergies Allergies/Adverse Reactions: Allergies Allergy/AdvReac Type Severity Reaction Status Date / Time No Known Drug Allergies Allergy Verified 08/30/22 16:17 - Social History Does the pt smoke?: No Smoking Status: Never smoker Does the pt drink ETOH?: No Does the pt have substance abuse?: No - Immunizations Immunizations are current?: Yes - POLST Patient has POLST: No PD ED PE NORMAL - General General: Alert and oriented X 3, No acute distress, Well developed/nourished - HEENT HEENT: Atraumatic, Moist mucous membranes, Pharynx benign - Neck Neck: Supple, no meningeal sign - Cardiac Cardiac: RRR, No murmur, Strong equal pulses - Respiratory Respiratory: No respiratory distress, Clear bilaterally - Abdomen Abdomen: Normal bowel sounds, Soft, Non tender, Non distended - Derm Derm: Warm and dry - Extremities Extremities: No edema - Neuro Neuro: Alert and oriented X 3, No motor deficit, No sensory deficit, Normal speech Results - Vitals Vitals: Oxygen O2 Source Room air - EKG (time done) 1347 EKG releavant findings:: EKG personally interpreted by author of this note. Relevant findings are: Rate 70, NSR, no STEMI, no ST depressions, QTc 388 - Labs Labs: Laboratory Tests 08/21/23 14:57 Nasal Adenovirus (PCR) NOT DETECTED Nasal B. parapertussis DNA (PCR) NOT DETECTED Nasal Coronavir 229E PCR NOT DETECTED Nasal Coronavir HKU1 PCR NOT DETECTED Nasal Coronavir NL63 PCR NOT DETECTED Nasal Coronavir OC43 PCR NOT DETECTED Nasal Enterovir/Rhinovir PCR DETECTED A Nasal Influenza B PCR NOT DETECTED Nasal Influenza A PCR NOT DETECTED Nasal Parainfluen 1 PCR NOT DETECTED Nasal Parainfluen 2 PCR NOT DETECTED Nasal Parainfluen 3 PCR NOT DETECTED Nasal Parainfluen 4 PCR NOT DETECTED Nasal RSV (PCR) NOT DETECTED Nasal B.pertussis DNA PCR NOT DETECTED Nasal C.pneumoniae (PCR) NOT DETECTED Lani Human Metapneumo PCR NOT DETECTED Nasal M.pneumoniae (PCR) NOT DETECTED Nasal SARS-CoV-2 (PCR) NOT DETECTED PD Medical Decision Making - ED course Complexity details: reviewed results, re-evaluated patient, d/w patient, d/w family ED course: Patient with cough, headache, trouble sleeping and chest pain for the past 1 week. Has not taken a home COVID test. Vital signs are stable. EKG is reviewed and is nonischemic. Chest x-ray which I reviewed is negative for pneumonia. Respiratory swab was obtained and is positive for rhinovirus which I called the patient about. Patient's primary concern is having trouble sleeping as baby also has URI symptoms and is waking her up every 2 hours. Explained options including pumping enough milk to save for a bottle that her spouse could give baby overnight versus giving a bottle of formula at night. However I did not recommend using medications that are potentially sedating as they may affect her supply or also impair her while she is nursing her baby at night. Patient counseled to continue with supportive care. Feel her symptoms would be atypical for ACS. Patient has no risk factors for ACS and has alternative diagnosis that is much more likely.PERC negative. Patient counseled on concerning symptoms to return for. Departure - Departure Disposition: 01 Home, Self Care Clinical Impression: Chest pain, Trouble in sleeping, Cough Condition: Stable Instructions: ED Chest Pain Atypical Unkn Cause Follow-Up: LANI Diallo [Provider Group] Comments: Your chest x-ray is clear. I do not see signs of pneumonia. For your difficulties with sleep you can try melatonin which is also okay to use with breast-feeding. I would recommend close follow-up with your primary care provider. Return to the emergency department with any worsening symptoms. Your respiratory panel is pending. This will check for COVID, influenza, RSV and a number of other common cold viruses. We will notify you if it is positive for COVID. Otherwise you can check the patient portal for your results. You should quarantine from others until you know your COVID result. Please continue with acetaminophen or ibuprofen as needed for fevers and body aches, plenty of fluids/hydration and rest. Return to the ER with any worsening symptoms such as difficulty breathing or vomiting. Forms: PCP List Discharge Date/Time: 08/21/23 15:32
--- NOTE | 2023-08-21 15:26 | XRAY Report ---
PROCEDURE: Chest 1 View X-Ray INDICATIONS: CP/cough TECHNIQUE: One view of the chest was acquired. COMPARISON: None. FINDINGS: Surgical changes and devices: None. Lungs and pleura: No pleural effusions or pneumothorax. Lungs are clear. Mediastinum: Mediastinal contours appear normal. Heart size is normal. Bones and chest wall: No suspicious bony lesions. Overlying soft tissues appear unremarkable. IMPRESSION: Portable single view radiograph. No acute abnormality identified. Reviewed by: Tom Malin MD on 08/21/2023 3:24 PM PDT Approved by: Tom Malin MD on 08/21/2023 3:24 PM PDT Station ID: [id number]
[2023-08-21 16:03] LABS: B. PARAPERTUSSIS- RESP PCR PAN NOT DETECTED; B. PERTUSSIS- RESP PCR PANEL NOT DETECTED; C. PNEUMONIAE- RESP PCR PANEL NOT DETECTED; CORONAVIRUS 229E-RESP PCR NOT DETECTED; CORONAVIRUS HKU1-RESP PCR NOT DETECTED; CORONAVIRUS NL63-RESP PCR NOT DETECTED; CORONAVIRUS OC43-RESP PCR NOT DETECTED; HUMAN METAPNEUMOVIRUS NOT DETECTED; INFLUENZA A- RESP PCR PANEL NOT DETECTED; INFLUENZA B - RESP PCR PANEL NOT DETECTED; M. PNEUMONIAE- RESP PCR PANEL NOT DETECTED; PARAINFLUENZA VIRUS 1 NOT DETECTED; PARAINFLUENZA VIRUS 2 NOT DETECTED; PARAINFLUENZA VIRUS 3 NOT DETECTED; PARAINFLUENZA VIRUS 4 NOT DETECTED; RHINOVIRUS/ENTEROVIRUS DETECTED; RSV- RESP PCR PANEL NOT DETECTED; SARS-CoV-2 -RESP PCR PANEL NOT DETECTED
[2023-08-21 16:33] VITALS: BP 124/82; O2SAT 98
== END 2023-08-21 15:32 | disposition home or self-care (01) ==
LOC: ED 13:32
DX: R07.9 Chest pain, unspecified (principal); G47.00 Insomnia, unspecified; R05.9 Cough, unspecified
CPT/HCPCS: 71045; 87633; 93005; 99283; 99284; A9270

== ENCOUNTER 2023-08-28 10:31 | Emergency (ER) | payer OTHER ==
[2023-08-28 10:59] VITALS: O2SAT 100
[2023-08-28 11:14] LABS: BILIRUBIN,URINE NEGATIVE (NEGATIVE); GLUCOSE, URINE (UA) NEGATIVE (NEGATIVE); KETONES,URINE (UA) NEGATIVE (NEGATIVE); LEUKOCYTE ESTERASE, URINE NEGATIVE (NEGATIVE); NITRITE,URINE NEGATIVE (NEGATIVE); OCCULT BLOOD,URINE NEGATIVE (NEGATIVE); PH,URINE 6.5 PH (5.0-7.5); PROTEIN,URINE NEGATIVE (NEGATIVE); UROBILINOGEN,URINE 0.2 (NORMAL) E.U./dL (NORMAL)
[2023-08-28 11:14] LABS: BASOPHILS % (AUTO) 0.2 %; EOSINOPHILS % (AUTO) 0.6 %; HGB - HEMOGLOBIN 13.2 g/dL (12.0-16.0); LYMPHOCYTES # (AUTO) 1.5 10^3/uL (1.5-3.5); LYMPHOCYTES % (AUTO) 30.4 %; MEAN CORPUSCULAR HEMOGLOBIN 27.4 pg (27.0-31.0); MEAN CORPUSCULAR HGB CONC 32.2 g/dL (32.0-36.0); MEAN CORPUSCULAR VOLUME 85.2 fL (81.0-99.0); MEAN PLATELET VOLUME 10.2 fL (7.9-10.8); MONOCYTES # (AUTO) 0.3 10^3/uL (0.0-1.0); MONOCYTES % (AUTO) 6.3 %; NEUTROPHILS # (AUTO) 3.2 10^3/uL (1.5-6.6); NEUTROPHILS % (AUTO) 62.3 %; PLT - PLATELET COUNT 224 10^3/uL (130-450); RED BLOOD COUNT 4.81 10^6/uL (4.20-5.40); RED CELL DISTRIBUTION WIDTH 13.8 % (12.0-15.0); WHITE BLOOD COUNT 5.1 x10^3/uL (4.8-10.8)
[2023-08-28 11:16] LABS: CLARITY,URINE CLEAR (CLEAR); HCG UR QUAL NEGATIVE
[2023-08-28 11:28] LABS: ALBUMIN 4.9 g/dL (3.2-5.5); ALBUMIN/GLOBULIN RATIO 1.4 (1.0-2.2); BILIRUBIN,TOTAL 0.5 mg/dL (0.2-1.0); CREATININE 0.8 mg/dL (0.6-1.3); POTASSIUM 3.9 mmol/L (3.5-4.5); TOTAL PROTEIN 8.3 g/dL (6.4-8.9)
[2023-08-28] MEDS ORDERED: METOCLOPRAMIDE 10 MG/2 ML VIAL IVP STA (12:36)
[2023-08-28] MEDS ORDERED: KETOROLAC 15 MG/ML VIAL IVP STA (12:36)
[2023-08-28] MEDS ORDERED: diphenhydrAMINE INJ 50 MG/ML VIAL IVP STA (12:36)
[2023-08-28] MEDS ORDERED: SODIUM CHLORIDE 0.9% 1,000 ML IV STA (12:36)
--- NOTE | 2023-08-28 14:05 | ED Physician Documentation ---
History of Present Illness - Stated complaint Stated Complaint: CLIFFORD,NAUSEA - Chief complaint Chief Complaint: Abd Pain - History obtained from History obtained from: Patient, Family - Additonal information Additional information: 33-year-old female with no significant past medical history presents by private vehicle from home for 1 week of ongoing occiptal pressure headache,, insomnia, nausea. Patient is samoan-speaking only, patient history obtained with at bedside who is her dye house hand. Patient was seen 1 week prior for chest pain, insomnia, congestion and discharge after unremarkable work-up. Patient states that her primary concern is the insomnia. She has been followed by her DESIGNER WRITER for regular care. She endorses that she is woken up multiple times per night in order to feed her young child. Review of Systems Constitutional: denies: Fever, Chills Cardiac: denies: Chest pain / pressure, Palpitations, Calf pain Respiratory: denies: Dyspnea, Cough, Wheezing GI: reports: Nausea. denies: Abdominal Pain, Vomiting : denies: Dysuria, Frequency, Hesitancy Musculoskeletal: denies: Neck pain, Back pain, Extremity pain Neurologic: reports: Headache. denies: Generalized weakness, Focal weakness, Numbness Psychiatric: reports: Insomnia. denies: Depressed, Suicidal, Homicidal, Hallucinations PD PAST MEDICAL HISTORY - Past Medical History Cardiovascular: None Respiratory: None GI: None - Past Surgical History Past Surgical History: Yes General: Appendectomy - Present Medications Home Medications: Ambulatory Orders Medication Instructions Recorded Confirmed No Known Home Medications 08/28/23 08/28/23 - Allergies Allergies/Adverse Reactions: Allergies Allergy/AdvReac Type Severity Reaction Status Date / Time No Known Drug Allergies Allergy Verified 08/28/23 10:49 - Social History Does the pt smoke?: No Smoking Status: Never smoker Does the pt drink ETOH?: No Does the pt have substance abuse?: No - Immunizations Immunizations are current?: Yes - POLST Patient has POLST: No PD ED PE NORMAL - Vitals Vital signs reviewed: Yes - General General: Alert and oriented X 3, No acute distress, Well developed/nourished - HEENT HEENT: Atraumatic - Neck Neck: Supple, no meningeal sign - Cardiac Cardiac: RRR, Strong equal pulses - Respiratory Respiratory: No respiratory distress, Clear bilaterally - Abdomen Abdomen: Soft, Non tender, Non distended - Back Back: No CVA TTP, No spinal TTP - Derm Derm: Normal color, Warm and dry, No rash - Extremities Extremities: No deformity, No tenderness to palpate, Normal ROM s pain, No edema - Neuro Neuro: Alert and oriented X 3, weapons officer naval activity 2-12 intact, No motor deficit, Normal speech - Psych Psych: Normal mood, Normal affect Results - Vitals Vitals: Vital Signs - 24 hr 08/28/23 08/28/23 10:52 15:26 Temperature 37.1 C Heart Rate 108 H 82 Respiratory 18 16 Rate Blood Pressure 153/96 H 149/97 H O2 Saturation 100 100 Oxygen O2 Source Room air - Labs Labs: Laboratory Tests 08/28/23 08/28/23 08/28/23 11:05 11:09 11:09 WBC 5.1 RBC 4.81 Hgb 13.2 Hct 41.0 MCV 85.2 MCH 27.4 MCHC 32.2 RDW 13.8 Plt Count 224 MPV 10.2 Neut # (Auto) 3.2 Lymph # (Auto) 1.5 [place] # (Auto) 0.3 Eos # (Auto) 0.0 Baso # (Auto) 0.0 Absolute Nucleated RBC 0.00 Nucleated RBC % 0.0 Sodium 139 Potassium 3.9 Chloride 105 Carbon Dioxide 25 Anion Gap 9.0 BUN 10 Creatinine 0.8 Estimated GFR (MDRD) 100 Glucose 97 Calcium 10.0 Total Bilirubin 0.5 AST 13 ALT 11 Alkaline Phosphatase 65 Total Protein 8.3 Albumin 4.9 Globulin 3.4 Albumin/Globulin Ratio 1.4 Lipase 25 Urine Color LT. YELLOW Urine Clarity CLEAR Urine pH 6.5 Ur Specific [place] <=1.005 Urine Protein NEGATIVE Urine Glucose (UA) NEGATIVE Urine Ketones NEGATIVE Urine Occult Blood NEGATIVE Urine Nitrite NEGATIVE Urine Bilirubin NEGATIVE Urine Urobilinogen 0.2 (NORMAL) Ur Leukocyte Esterase NEGATIVE Ur Microscopic Review NOT INDICATED Urine Culture Comments NOT INDICATED Urine HCG, Qual NEGATIVE PD Medical Decision Making - ED course Complexity details: reviewed old records, reviewed results, re-evaluated patient, considered differential, d/w patient, d/w family ED course: This is a well-appearing patient with insomnia, headache, nausea 3 months . Seen last week for chest pain, congestion, insomnia. Patient is neurologically intact, no focal neurologic deficit, resting comfortably in ED bed. We will repeat laboratory work, since she has had persistent headache will order CT of the brain. Headache cocktail ordered for pain. Laboratory work is unremarkable. CT of the brain negative for acute findings. Patient feels improved after headache cocktail. I explained the results of all labs and imaging with at bedside. I explained that I do not know the cause of the patient's insomnia or other complaints, however her work-up here is negative for anything that would require hospitalization or surgery. I recommended close follow-up with primary care physician. I recommended Tylenol and Motrin for headache as well as melatonin or Benadryl for insomnia. Recommended sleep hygiene measures such as decreasing screen time prior to bed, light exercise. expressed understanding of plan and after translating for patient at bedside she is also in agreement. Departure - Departure Disposition: 01 Home, Self Care Clinical Impression: Headache Qualifiers: Headache type: other headache syndrome Qualified Code(s): G44.89 - Other headache syndrome Insomnia Qualifiers: Insomnia type: unspecified Qualified Code(s): G47.00 - Insomnia, unspecified Condition: Stable Instructions: ED Headache Tension, ED Insomnia Comments: Your laboratory work and CT scan today were normal. I do not know the cause of your symptoms. I highly recommend that you follow-up with primary care physicia n. I recommend melatonin and/or Benadryl at night for sleep. Take Tylenol and Motrin as needed for headache. Forms: PCP List Discharge Date/Time: 08/28/23 15:41
--- NOTE | 2023-08-28 15:02 | CT Report ---
PROCEDURE: CT brain without contrast INDICATIONS: CLIFFORD/INSOMNIA TECHNIQUE: Helical axial CT of the brain was obtained without contrast and reformatted in multiple p lanes. Radiation dose reduction was achieved using automated exposure control or adjustment of mA and /or kV according to patient size. COMPARISON: None FINDINGS: CSF spaces: Ventricles are appropriate in size and position. No hydrocephalus. Basal cisterns unre markable. Brain: No midline shift. No intracranial masses or hemorrhage. Ponce-white matter interface is norm al. Skull and face: Calvarium and skull base are unremarkable without suspicious lesion. Sinuses: Visualized sinuses and mastoids are clear. IMPRESSION: Unremarkable CT of the brain Reviewed by: Delfin Mart MD on 08/28/2023 2:01 PM JUAN Approved by: Delfin Mart MD on 08/28/2023 2:01 PM AKGENA Station ID: [id number]
[2023-08-28 15:33] VITALS: BP 149/97
== END 2023-08-28 15:41 | disposition home or self-care (01) ==
LOC: ED 10:31
DX: G44.89 Other headache syndrome (principal); G47.00 Insomnia, unspecified; R11.0 Nausea
CPT/HCPCS: 36415; 70450; 80053; 81003; 81025; 83690; 85025; 96374; 99283; 99284; J1200; J2765; 81001; 87086